=== PATIENT | male | born 1965 | race Caucasian/White ===

== ENCOUNTER 2016-06-13 08:20 | Emergency (ER) ==
[2016-06-13] MEDS ORDERED: XYLOCAINE-MPF 1% INJ ONE (09:14)
[2016-06-13] MEDS ORDERED: ZOFRAN ODT PO ONE (09:14)
--- NOTE | 2016-06-13 09:23 | PROVIDER DOCUMENTATION ---
HPI-Abdominal Pain/GI Problem <Samira Mccloud X - Last Filed: 06/13/16 10:07> - General Source: patient - History of Present Illness-ABD Abdominal Pain Onset Location: reports: other (rectal) Pain Radiation: reports: no radiation Quality of Pain: reports: burning Severity in ED: reports: moderate Onset/Duration: reports: unsure Timing: reports: still present, constant Activities at Onset: reports: none Modifying Factors: improves with: nothing Associated Symptoms: denies: chest pain, constipation, diaphoresis, fever/chills , genitourinary problems, nausea, vomiting Similar Symptoms Previously?: Yes Recently seen or treated by another doctor?: No <Slava Thompson - Last Filed: 06/13/16 10:12> - General Chief Complaint: Hemorrhoids Stated Complaint: HEMORRHOIDS Time Seen by Provider: 06/13/16 08:54 Allergies/Adverse Reactions: Patient Allergies Allergy/AdvReac Type Severity Reaction Status Date / Time No Known Allergies Allergy Verified 06/13/16 09:53 Home Medications: Alprazolam [Xanax] 0.5 mg PO QHS 06/13/16 - History of Present Illness-ABD Nature of Presenting Problems: pt is a 51 y/o M that presents with hemorrhoids x a few days. history of same, usually relieved by cream but not today. Patient denies bleeding (Slava Thompson) Review of Systems - Adult - REVIEW OF SYSTEMS - ADULT Constitutional: reports: no symptoms reported Eyes: reports: no symptoms reported Ears, Nose, Mouth & Throat: reports: no symptoms reported Cardiovascular: reports: no symptoms reported Respiratory: reports: no symptoms reported Gastrointestinal: denies: abdominal pain, constipation, frequent heartburn, rectal bleeding, vomiting Genitourinary: denies: dysuria, frequency, hematuria Musculoskeletal: reports: no symptoms reported Integumentary: reports: no symptoms reported Neurological: reports: no symptoms reported Psychiatric: reports: no symptoms reported Endocrine: reports: no symptoms reported Hematologic/Lymphatic: reports: no symptoms reported Allergic/Immunologic: reports: no symptoms reported All Other Systems: Reviewed and Negative <Slava Thompson - Last Filed: 06/13/16 10:12> Past History - Adult - PAST MEDICAL HISTORY-ADULT Review of Records: reports: Old Records Reviewed, Nursing Assessment Review, Medications Reviewed - PRIOR SURGERIES/PROCEDURES Surgical/Procedure History: reports: reviewed, not pertinent - IMMUNIZATION STATUS Childhood Immunizations: See Nurse Assessment Flu Vaccine: See Nurse Assessment - FAMILY HISTORY Family History: reviewed, not pertinent - SOCIAL HISTORY Smoking: non-smoker Living Situation: family <Slava Thompson - Last Filed: 06/13/16 10:12> Physical Exam-General - PHYSICAL EXAM-ADULT Initial Vital Signs Reviewed: Yes - CONSTITUTIONAL General Appearance: alert, no apparent distress - EYES Eyes: PERRL/EOMI, pink conjunctivae - HEAD, EARS, NOSE, MOUTH & THROAT HENMT: normocephalic/atraumatic, moist mucous membranes, normal ENT inspection - NECK Neck: full range of motion, normal inspection - RESPIRATORY Respiratory: lungs clear, normal breath sounds, no respiratory distress, no accessory muscle use - CARDIOVASCULAR Cardiovascular: regular rate, rhythm, no murmur - GASTROINTESTINAL (ABDOMEN) Abdominal Exam: normal bowel sounds, non tender, soft, no organomegaly, no pulsatile mass - GENITOURINARY Rectal Exam: hemorrhoids (thrombus small blackened area, multiple small pink ones). negative: black stool, prostate enlarged/nodule - MUSCULOSKELETAL Back Exam: no CVA tenderness, no vertebral tenderness Extremity: normal range of motion, non-tender, normal inspection, no pedal edema - SKIN Integumentary: normal color, normal turgor, warm/dry - NEUROLOGIC Neurologic: grossly normal, no motor/sensory deficits - PSYCHIATRIC Psych/Mental Status: normal mood/affect, normal thought content, normal thought process, oriented x 3 <Slava Thompson - Last Filed: 06/13/16 10:12> Progress - REASSESSMENT Reassessment #1 Time Reassessed: 10:08 Status: improving (Pt feels better after the thrombosed hemorrhoids incised and the thrombose released.) <Samira Mccloud X - Last Filed: 06/13/16 10:07> <Slava Thompson - Last Filed: 06/13/16 10:12> - PLAN OF CARE/RESULTS Progress/Plan/Lab Results: Vital Signs Temp Pulse Resp BP Pulse Ox 06/13/16 08:24 160/91 06/13/16 08:23 98.0 F 80 20 96 No Known Allergies Allergy (Verified 06/13/16 09:53) Alprazolam [Xanax] 0.5 mg PO QHS 06/13/16 Orders Category Date Time Status Suture Tray Set-Up DIRECTED Care 06/13/16 09:14 Active UA NIMS W/REFLEX CULT [URINALYSIS] Stat Lab 06/13/16 09:14 Uncollected Hydrocodone/APAP 10 mg/325 mg [Udell-10] Med 06/13/16 10:07 Discontinued 1 each PO NOW ONE Lidocaine 1% Pf [Xylocaine-Mpf 1%] Med 06/13/16 09:14 Discontinued See Dose Instructions INJ NOW ONE Ondansetron Odt [Zofran Odt] Med 06/13/16 09:14 Discontinued 8 mg PO NOW ONE (Samira Mccloud) plan of care-i&d removal of thrombus hemorrhoid Vital Signs Temp Pulse Resp BP Pulse Ox 06/13/16 08:24 160/91 06/13/16 08:23 98.0 F 80 20 96 No Known Allergies Allergy (Verified 06/13/16 09:53) Alprazolam [Xanax] 0.5 mg PO QHS 06/13/16 Orders Category Date Time Status Suture Tray Set-Up DIRECTED Care 06/13/16 09:14 Active UA NIMS W/REFLEX CULT [URINALYSIS] Stat Lab 06/13/16 09:14 Uncollected Hydrocodone/APAP 10 mg/325 mg [Udell-10] Med 06/13/16 10:07 Discontinued 1 each PO NOW ONE Lidocaine 1% Pf [Xylocaine-Mpf 1%] Med 06/13/16 09:14 Discontinued See Dose Instructions INJ NOW ONE Ondansetron Odt [Zofran Odt] Med 06/13/16 09:14 Discontinued 8 mg PO NOW ONE pt will be d/c home with rx, f/u with pcp and surgeon, number given, pt was clinically stable (Slava Thompson) Procedures - INCISION & DRAINAGE Site: rectum Abscess Type: Other (thrombus hemrrhoid) Prepped with: Betadine Anesthetic: 1%, Lidocaine/Xylocaine Volume of Anesthetic (ml's): 6 Blade Size: 11 Packing placed?: No Sterile Dressing Applied?: No <Slava Thompson - Last Filed: 06/13/16 10:12> Departure <Samira Mccloud - Last Filed: 06/13/16 10:07> - Departure Time of Disposition Order: 10:11 Certified Medical Emergency: Emergent <Slava Thompson - Last Filed: 06/13/16 10:12> - Departure DIAGNOSIS: Thrombosed hemorrhoids Disposition: HOME 01 Condition: Stable Additional Instructions: f./u with surgeon sitz baths ED Follow Up Instructions: You have been treated by a care provider in the Emergency Department. These instructions are being provided to you so you can have an understanding of how to care for yourself upon discharge. Upon discharge from the Emergency Department, you are responsible for making arrangements for follow-up care by a physician of your choice. Take all prescribed medications as directed. Return to the Emergency Department immediately for any new or worsening symptoms. You may call the Physician Referral phone number at [phone] to obtain a list of Physicians who are taking new patients. Referrals: Mu Villalobos MD [Primary Care Provider] - Ramy Solares MD [STAFF PHYSICIAN] - (call for f/u) Instructions: Hemorrhoids, [id number], Sitz Bath, [id number] Attestation - Scribe Verification/Attestation Scribe:: Slava Thompson Acting as Scribe for:: Samira Mccloud Scribe documention review:: This chart was documented by a scribe and accurately reflects the service the provider performed and the decisions made by the provider. <Slava Thompson - Last Filed: 06/13/16 10:12> Physician Attestation - Physician Attestation I, the provider, attest to the following statement:: Samira Mccloud Physician documentation Attestation:: This documentation recorded by the scribe accurately reflects the service I personally performed and the decisions made by me. <Slava Thompson - Last Filed: 06/13/16 10:12>
[2016-06-13] MEDS ORDERED: NORCO-10 PO ONE (10:07)
[2016-06-13 10:51] VITALS: BP 124/71
== END 2016-06-13 10:50 | disposition home or self-care (01) ==
LOC: ED 08:20
DX: K64.5 Perianal venous thrombosis (principal); Z79.899 Other long term (current) drug therapy
CPT/HCPCS: S0181